=== PATIENT | female | born 1940 | race Caucasian/White ===

== ENCOUNTER 2016-11-23 11:43 | Inpatient (IN) ==
[2016-11-23] MEDS ORDERED: NS 1,000 ML IV ONE ×2 (12:40→15:46)
--- NOTE | 2016-11-23 12:42 | PROVIDER DOCUMENTATION ---
HPI-General Adult - General Chief Complaint: Altered Mental Status Stated Complaint: AMS Time Seen by Provider: 11/23/16 12:07 Source: patient Allergies/Adverse Reactions: Patient Allergies Allergy/AdvReac Type Severity Reaction Status Date / Time No Known Allergies Allergy Verified 11/23/16 11:58 - History of Present Illness -Gen Adult Nature of Presenting Problems: Pt is 76 y/o F presents to the ED via EMS with AMS. Pt's friend states that she did not show up for buddhist this morning. Pt states she feel fine. Pt states she did not feel well so she did not go to buddhist. Pt denies F and C. Pt denies LOC. Location of Pain/Injury: reports: generalized Pain Radiation: reports: no radiation Quality of Pain: reports: aching Severity: reports: mild Onset/Duration: reports: unsure Timing: reports: still present, intermittent Context/Activities at Onset: reports: light activity Modifying Factors: improves with: nothing Associated Symptoms: reports: weakness. denies: arm pain, back/neck pain, chest pain, diarrhea, fever/chills, loss of appetite, nausea, shortness of breath, trouble walking Similar Symptoms Previously?: Yes Recently seen or treated by another doctor?: No Review of Systems - Adult - REVIEW OF SYSTEMS - ADULT Constitutional: denies: chills, fever Eyes: denies: blurred vision, double vision Ears, Nose, Mouth & Throat: denies: ear pain, nose pain, throat pain Cardiovascular: denies: chest pain, heart murmur, irregular heart rate Respiratory: denies: cough, shortness of breath, wheezing Gastrointestinal: denies: abdominal pain, diarrhea, nausea, vomiting Genitourinary: denies: dysuria, hematuria Musculoskeletal: reports: muscle weakness. denies: bone pain, joint pain, neck pain Integumentary: denies: hives, itching Neurological: denies: dizziness/vertigo, headache/migraines Psychiatric: reports: no symptoms reported Endocrine: reports: no symptoms reported Hematologic/Lymphatic: reports: no symptoms reported Allergic/Immunologic: reports: no symptoms reported All Other Systems: Reviewed and Negative Past History - Adult - PAST MEDICAL HISTORY-ADULT Review of Records: reports: Nursing Assessment Review, Medications Reviewed, Social history reviewed & non-contributory. Major Childhood Illnesses: reports: denies history Cardiovascular: reports: HTN Respiratory: reports: denies history Gastrointestinal: reports: denies history Obstetrical/Gynecological: reports: denies history Genitourinary: reports: denies history Musculoskeletal: reports: denies history Neurological: reports: denies history Endocrine/Immune: reports: Diabetes Other Conditions: reports: denies history - PRIOR SURGERIES/PROCEDURES Surgical/Procedure History: reports: tonsillectomy - IMMUNIZATION STATUS Childhood Immunizations: See Nurse Assessment Flu Vaccine: See Nurse Assessment - FAMILY HISTORY Family History: reviewed, not pertinent - SOCIAL HISTORY Smoking: denies Substance Use: denies Living Situation: alone Physical Exam-General - PHYSICAL EXAM-ADULT Initial Vital Signs Reviewed: Yes - CONSTITUTIONAL General Appearance: alert, no apparent distress, slow to respond. negative: appears well (ill in appearance) - EYES Eyes: PERRL/EOMI, pink conjunctivae - HEAD, EARS, NOSE, MOUTH & THROAT HENMT: normocephalic/atraumatic, normal ENT inspection. negative: moist mucous membranes (dry) - NECK Neck: non-tender, full range of motion, supple, normal inspection - RESPIRATORY Respiratory: chest non-tender, lungs clear, normal breath sounds - CARDIOVASCULAR Cardiovascular: normal peripheral pulses, regular rate, rhythm, no edema - GASTROINTESTINAL (ABDOMEN) Abdominal Exam: normal bowel sounds, non tender, soft - LYMPHATIC Lymphatic: no adenopathy - MUSCULOSKELETAL Back Exam: normal inspection, no CVA tenderness, no vertebral tenderness Extremity: normal range of motion, non-tender, normal gait - SKIN Integumentary: normal color, normal turgor, warm/dry - NEUROLOGIC Neurologic: specialized language instructor II-XII nml as tested, grossly normal, no motor/sensory deficits - PSYCHIATRIC Psych/Mental Status: normal mood/affect, normal thought content, normal thought process, oriented x 3 Progress - PLAN OF CARE/RESULTS Progress/Plan/Lab Results: Orders Category Date Time Status Cardiac Monitoring DIRECTED Care 11/23/16 12:38 Active Finger Stick Blood Sugar (ED) DIRECTED Care 11/23/16 12:38 Active Saline Loc NOW Care 11/23/16 12:38 Active CHEST-PORTABLE [RAD] Stat Exams 11/23/16 12:39 Ordered ALCOHOL BLOOD Stat Lab 11/23/16 12:16 Received CBC WITH ELECTRONIC DIFF [HEME] Stat Lab 11/23/16 12:16 Results CK PROFILE [SP CHEM] Stat Lab 11/23/16 12:16 Received COMPREHENSIVE METABOLIC PANEL [CHEM] Stat Lab 11/23/16 12:16 Received LACTATE, PLASMA [CHEM] Stat Lab 11/23/16 12:38 Uncollected TROPONIN T Stat Lab 11/23/16 12:16 Received UA NIMS W/REFLEX CULT [URINALYSIS] Stat Lab 11/23/16 12:38 Uncollected URINE DRUG SCREEN Stat Lab 11/23/16 12:38 Uncollected 0.9% Sodium Chloride Inj [Ns] 1,000 ml Med 11/23/16 12:40 Active IV 999 mls/hr Pulse Oximetry Stat Oth 11/23/16 12:38 Active EKG [EKG] Stat Ther 11/23/16 12:38 Ordered Vital Signs - 24 hr 11/23/16 11:58 Temperature 99.0 F Pulse Rate 96 H Respiratory 20 Rate Blood Pressure 136/58 O2 Sat by Pulse 95 Oximetry Laboratory Tests 11/23/16 12:16 WBC 3.09 L RBC 4.25 Hgb 11.4 L Hct 35.6 L MCV 83.8 MCH 26.8 L MCHC 32.0 L RDW Std Deviation 14.4 Plt Count 184 MPV 10.9 H Immature Gran % (Auto) 0.0 Neut % (Auto) 70.3 Lymph % (Auto) 15.5 L [place] % (Auto) 14.2 H Eos % (Auto) 0.0 Baso % (Auto) 0.0 Immature Gran # (Auto) 0.00 Neut # 2.17 Lymph # 0.48 L [place] # 0.44 Eos # 0.00 Baso # 0.00 Laboratory Tests 11/23/16 11/23/16 11/23/16 12:16 12:16 12:16 WBC 3.09 L RBC 4.25 Hgb 11.4 L Hct 35.6 L MCV 83.8 MCH 26.8 L MCHC 32.0 L RDW Std Deviation 14.4 Plt Count 184 MPV 10.9 H Immature Gran % (Auto) 0.0 Neut % (Auto) 70.3 Lymph % (Auto) 15.5 L [place] % (Auto) 14.2 H Eos % (Auto) 0.0 Baso % (Auto) 0.0 Immature Gran # (Auto) 0.00 Neut # 2.17 Lymph # 0.48 L [place] # 0.44 Eos # 0.00 Baso # 0.00 Sodium 134 L Potassium 3.9 Chloride 95 L Carbon Dioxide 24 L Anion Gap 15 BUN 14 Creatinine 0.7 Estimated GFR/1.73 m2 > 60 BUN/Creatinine Ratio 20 Glucose 98 Calculated Osmolality 269 Calcium 8.8 Total Bilirubin 0.36 AST 19 ALT 9 L Alkaline Phosphatase 63 Creatine Kinase 114 Troponin T Total Protein 7.2 Albumin 3.5 Globulin 3.7 Albumin/Globulin Ratio 0.9 Plasma Lactate Plasma/Serum Ethyl Alc 11/23/16 11/23/16 12:16 12:49 WBC RBC Hgb Hct MCV MCH MCHC RDW Std Deviation Plt Count MPV Immature Gran % (Auto) Neut % (Auto) Lymph % (Auto) [place] % (Auto) Eos % (Auto) Baso % (Auto) Immature Gran # (Auto) Neut # Lymph # [place] # Eos # Baso # Sodium Potassium Chloride Carbon Dioxide Anion Gap BUN Creatinine Estimated GFR/1.73 m2 BUN/Creatinine Ratio Glucose Calculated Osmolality Calcium Total Bilirubin AST ALT Alkaline Phosphatase Creatine Kinase Troponin T < 0.010 Total Protein Albumin Globulin Albumin/Globulin Ratio Plasma Lactate 1.4 Plasma/Serum Ethyl Alc Laboratory Tests 11/23/16 11/23/16 11/23/16 12:16 12:16 12:16 WBC 3.09 L RBC 4.25 Hgb 11.4 L Hct 35.6 L MCV 83.8 MCH 26.8 L MCHC 32.0 L RDW Std Deviation 14.4 Plt Count 184 MPV 10.9 H Immature Gran % (Auto) 0.0 Neut % (Auto) 70.3 Lymph % (Auto) 15.5 L [place] % (Auto) 14.2 H Eos % (Auto) 0.0 Baso % (Auto) 0.0 Immature Gran # (Auto) 0.00 Neut # 2.17 Lymph # 0.48 L [place] # 0.44 Eos # 0.00 Baso # 0.00 Sodium 134 L Potassium 3.9 Chloride 95 L Carbon Dioxide 24 L Anion Gap 15 BUN 14 Creatinine 0.7 Estimated GFR/1.73 m2 > 60 BUN/Creatinine Ratio 20 Glucose 98 Calculated Osmolality 269 Calcium 8.8 Total Bilirubin 0.36 AST 19 ALT 9 L Alkaline Phosphatase 63 Creatine Kinase 114 Troponin T Total Protein 7.2 Albumin 3.5 Globulin 3.7 Albumin/Globulin Ratio 0.9 Plasma Lactate Urine Source Urine Color Urine Turbidity Urine pH Ur Specific Grants Urine Protein Ur Glucose (Stick) Ur Ketones (Stick) Urine Blood Urine Nitrite Urine Bilirubin Urobilinogen Dipstick Urine Leukocytes Urine WBC (Auto) Urine RBC (Auto) U Epithel Cells (Auto) Urine Bacteria (Auto) Plasma/Serum Ethyl Alc 11/23/16 11/23/16 11/23/16 12:16 12:49 14:39 WBC RBC Hgb Hct MCV MCH MCHC RDW Std Deviation Plt Count MPV Immature Gran % (Auto) Neut % (Auto) Lymph % (Auto) [place] % (Auto) Eos % (Auto) Baso % (Auto) Immature Gran # (Auto) Neut # Lymph # [place] # Eos # Baso # Sodium Potassium Chloride Carbon Dioxide Anion Gap BUN Creatinine Estimated GFR/1.73 m2 BUN/Creatinine Ratio Glucose Calculated Osmolality Calcium Total Bilirubin AST ALT Alkaline Phosphatase Creatine Kinase Troponin T < 0.010 Total Protein Albumin Globulin Albumin/Globulin Ratio Plasma Lactate 1.4 Urine Source CATH Urine Color YELLOW Urine Turbidity CLEAR Urine pH 5.5 Ur Specific [place] 1.026 Urine Protein 30 A Ur Glucose (Stick) NEGATIVE Ur Ketones (Stick) 20 A Urine Blood MODERATE A Urine Nitrite NEGATIVE Urine Bilirubin NEGATIVE Urobilinogen Dipstick 2 A Urine Leukocytes TRACE A Urine WBC (Auto) 10-20 A Urine RBC (Auto) 10-20 A U Epithel Cells (Auto) >10 A Urine Bacteria (Auto) 2+ Plasma/Serum Ethyl Alc - EKG 1 Time of EKG reading by physician:: 12:04 EKG Read and Signed by:: Viktor Marx EKG Interpretation (*Must complete 3 of following elements*): Abnormal Rate: 91 Rhythm: sinus rhythm with marked sinus arrhythmia Comments: L axis deviation - XRAY 1 XRAY: Bilateral XRAY Study: Chest Impression: Normal XRAY Interpretation: negative - CT/MRI 1 CT Study: Head Impression: Normal CT Results: no acute disease - CONSULTS/PCP/HOSPITALIST Notification #1 *Consult/PCP/Hospitalist*: Dr. Vegas Time Discussed: 13:12 (Dr. Vegas accepted admit ) Reason/Comments: Dr. Marx consulted with Dr. Vegas about admit of PT Consult Disposition: Admit Departure - Departure Time of Disposition Order: 15:12 DIAGNOSIS: Altered mental status Qualifiers: Altered mental status type: unspecified Qualified Code(s): R41.82 - Altered mental status, unspecified Disposition: ADMITTED INPATIENT 09 Certified Medical Emergency: Emergent Condition: Stable Attestation - Scribe Verification/Attestation Scribe:: Patsy Albright Acting as Scribe for:: Viktor Marx Scribe documention review:: This chart was documented by a scribe and accurately reflects the service the provider performed and the decisions made by the provider.
[2016-11-23 12:45] LABS: MANUAL DIFF NEEDED? NO
[2016-11-23 12:52] LABS: HEMATOCRIT 35.6 % (37.0-47.0); HEMOGLOBIN 11.4 g/dL (12.0-16.0); LYMPH# 0.48 X1000 (1.2-3.4); LYMPH% 15.5 % (20.5-51.1); MCH 26.8 PG (27-31); MCV 83.8 FL (81-99); MONO# 0.44 X1000 (0.11-0.59); MONO% 14.2 % (1.7-9.3); MPV 10.9 FL (7.4-10.4); NEUT% 70.3 % (42.2-75.2); PLT 184 X1000 (130-400); RBC 4.25 XMIL (4.2-5.4)
[2016-11-23 13:15] LABS: AGAP 15; ALBUMIN 3.5 g/dL (3.5-5.0); ALKALINE PHOSPHATASE 63 U/L (32-104); BUN 14 mg/dL (8-22); CALCIUM 8.8 mg/dL (8.8-10.2); CHLORIDE 95 mmol/L (98-107); CK PROFILE 114 U/L (24-173); COSMO 269; GOT 19 U/L (10-30); GPT 9 U/L (10-36); POTASSIUM 3.9 mmol/L (3.5-5.1); SODIUM 134 mmol/L (136-145); TCO2 24 mmol/L (25-35); TOTAL BILIRUBIN 0.36 mg/dL (0.20-1.00); TOTAL PROTEIN 7.2 g/dL (6.3-8.3)
--- NOTE | 2016-11-23 14:48 | Diag Imaging Result Document ---
PROCEDURE NAME: CHEST-PORTABLE - 11/23/2016 PORTABLE CHEST: COMPARISON: None. FINDINGS: The lungs are normally expanded and clear. Heart size and mediastinal contours are normal. No pneumothorax or pleural effusion. IMPRESSION: Negative exam.
[2016-11-23 14:52] LABS: URINE MICRO REVIEW NEEDED? NO; URINE SOURCE CATH
[2016-11-23 14:57] LABS: BILIRUBIN URINE NEGATIVE (NEGATIVE); BLOOD URINE MODERATE (NEGATIVE); COLOR YELLOW; GLUCOSE URINE NEGATIVE (NEGATIVE); LEUKOCYTES URINE TRACE (NEGATIVE); NITRITE URINE NEGATIVE (NEGATIVE); PH URINE 5.5; PROTEIN URINE 30 mg/dL (NEGATIVE); SP GRAVITY URINE 1.026; TURBIDITY URINE CLEAR (CLEAR); UR EPITHELIAL CELLS >10 /HPF (<10); URINE BACTERIA 2+ /HPF; URINE CULTURE NEEDED? YES; UROBILINOGEN URINE 2 mg/dL (NORMAL)
[2016-11-23] MEDS ORDERED: ROCEPHIN 1 GM/NS 50 ML IV ONE (15:02)
[2016-11-23 15:22] LABS: UR AMPHETAMINES QUAL NONE DETECTED (NONE DETECT); UR BARBITUATES QUAL NONE DETECTED (NONE DETECT); UR BENZODIAZEPIN QUAL NONE DETECTED (NONE DETECT); UR CANNABINOIDS QUAL NONE DETECTED (NONE DETECT); UR COCAINE QUAL NONE DETECTED (NONE DETECT); UR METHADONE QUAL NONE DETECTED (NONE DETECT); UR OPIATES QUAL NONE DETECTED (NONE DETECT); UR OXYCODONE QUAL NONE DETECTED (NONE DETECT); UR PCP QUAL NONE DETECTED (NONE DETECT)
[2016-11-23] MEDS ORDERED: LEVAQUIN 750 MG/D5W 150 ML IV SCH (16:00)
--- NOTE | 2016-11-23 16:16 | Diag Imaging Result Document ---
PROCEDURE NAME: HEAD W/O CONTRAST - 11/23/[address]: A CT dose reduction protocol was used. COMPARISON: None. FINDINGS: There is mild periventricular white matter chronic microvascular disease. No intracranial mass or hemorrhage. The skull is intact. The sinuses are clear. IMPRESSION: No acute disease. [facility]
[2016-11-23] MEDS ORDERED: TYLENOL PO PRN (16:40)
[2016-11-23] MEDS ORDERED: ZOFRAN IV PRN (16:40)
[2016-11-23] MEDS: LEVAQUIN 750 MG in NS 150 ML IV SCH (16:57)
--- NOTE | 2016-11-23 23:18 | HISTORY AND PHYSICAL ---
PRIMARY CARE PROVIDER: Mik Carey MD CHIEF COMPLAINT: Feeling bad mid morning. HISTORY OF PRESENT ILLNESS: Ms. Hayden is a 76-year-old healthy female in no acute distress. Apparently she has [facility] the [facility] and their [facility] program included her with using bells. Given that she has been there for 40+ years, it was noticed that she did not show up for [facility] this morning. Someone went to go check on her and found her to be slightly confused, smelling of urine and she was brought here to [facility] ER. Workup revealed that she has urinary tract infection with urinalysis 30 protein, 20 ketones, moderate blood and trace leukocytes, 10 to 20 white blood cells, and 2 + bacteria. A urine drug screen and alcohol test were negative. The patient states that she did not have any falls this morning, she is unsure why she did not call anyone to let them know. Currently, she is living alone. We will admit her for IV fluid hydration for dehydration, IV antibiotics for urinary tract infection and perform a head CT to evaluate history of stroke. Ms. Hayden is a poor historian, although she is oriented. She repeats her stories with some confused conversation. PAST MEDICAL HISTORY: Hypertension, diabetes type 2. SURGICAL HISTORY: Tonsillectomy. SOCIAL HISTORY: Denies alcohol, illicit drug use or tobacco. Lives at home alone and is able to ambulate without assistance. She is somewhat cachectic, but states that she has no issues with feeding. Her cousin who is at the bedside states that she eats like a bird. FAMILY HISTORY: Mother is . They had congestive heart failure, diabetes and stroke in the family. REVIEW OF SYSTEMS: Difficult to obtain, but all were negative except for those mentioned in the above HPI. ALLERGIES: No known drug allergies. HOME MEDICATIONS: Currently none are listed. LABORATORY DATA: White blood cells 3000, hemoglobin 11.4, hematocrit 35.6, platelet count 184,000. Sodium 134, BUN 14, creatinine 0.7, glucose 98. Total bilirubin 0.36 , AST 19, ALT 9, CK 114, troponins less than 0.01. Lactate 1.4. Albumin 3.5. Urinalysis 30 protein, 20 ketones, moderate blood, negative nitrite, trace leukocytes, 10-20 white blood cells. Greater than 10 epithelial cells, 2+ bacteria, urine drug screen negative. Alcohol level negative. IMAGING: Head CT pending. Chest x-ray, negative exam. EKG, normal sinus rhythm, sinus arrhythmia, with a left axis deviation, rate of 91. PHYSICAL EXAMINATION: VITAL SIGNS: Temperature is 99 degrees, heart rate 96, respiratory rate 20, blood pressure 136/58, O2 saturation 95% on room air. She is 5 feet 10 inches tall, 185 pounds as stated by the patient, although she looks much less weight than that, a BMI of 26.5 and she does not look 5 feet 10 inches tall. GENERAL: Ms. Melanie Hayden is a 76-year-old female who is somewhat cachectic, she is in no acute distress. She has the smell of the urine. She is able to answer questions, but has been repeating answers. HEENT: Atraumatic, normocephalic. Pupils equal, round, reactive to light. Extraocular movements intact. CARDIOVASCULAR: S1, S2. Regular rate and rhythm. No rubs, gallops, murmurs. NECK: No JVD or carotid bruits noted. Mucous membranes dry. PULMONARY: Clear to auscultation. Bilateral breath sounds. No accessory muscle use or work of breathing noted on room air. GI: Soft, concave, nontender. Positive bowel sounds x4. NEUROLOGIC: Alert and oriented times name, place and year, but still continues to have confused conversation. She is able to follow all commands and she is about 4.5 out of 5 in all extremities with strength. EXTREMITIES: +2 dorsalis and radial pulses. No edema noted. SKIN: Warm, dry, intact. ASSESSMENT AND PLAN: 1. Urinary tract infection. We will treat with Levaquin IV. We will do IV fluid hydration and follow up with urine culture. 2. Questionable underlying dementia versus encephalopathy secondary to urinary tract infection. We will follow up with head computed tomography. Currently she is pleasant, she has no weakness on 1 side versus the other. We will continue to trend. It is unknown if she is on medications at home for this. 3. Anemia, hemoglobin 11, hematocrit 35. We will do anemia labs and start supplementation as needed. 4. Leukopenia, white blood cells 3000. 5. Hyponatremia. Should improve with IV fluid hydration with normal saline. 6. Deep venous thrombosis prophylaxis. We will do Lovenox subcutaneous daily. 7. Gastrointestinal prophylaxis. We will do a proton pump inhibitor. Dictated by BRADLY Childress for Margarito Umanzor MD [facility]
[2016-11-23] MEDS: HUMULIN R SUBQ SCH (23:45)
[2016-11-24] MEDS: LOVENOX SUBQ SCH (05:29)
[2016-11-24 05:55] LABS: MANUAL DIFF NEEDED? NO
[2016-11-24] MEDS: PRILOSEC PO SCH (06:02)
[2016-11-24 06:04] LABS: HEMATOCRIT 32.8 % (37.0-47.0); HEMOGLOBIN 10.3 g/dL (12.0-16.0); LYMPH% 31.3 % (20.5-51.1); MCH 26.6 PG (27-31); MCHC 31.4 g/dL (33-37); MCV 84.8 FL (81-99); MONO# 0.29 X1000 (0.11-0.59); MONO% 12.9 % (1.7-9.3); MPV 10.6 FL (7.4-10.4); NEUT% 55.8 % (42.2-75.2); PLT 160 X1000 (130-400); RBC 3.87 XMIL (4.2-5.4)
[2016-11-24 06:10] LABS: AGAP 14; ALBUMIN 2.8 g/dL (3.5-5.0); ALKALINE PHOSPHATASE 51 U/L (32-104); BUN 14 mg/dL (8-22); CHLORIDE 101 mmol/L (98-107); COSMO 273; GOT 19 U/L (10-30); GPT 8 U/L (10-36); MAGNESIUM 1.9 mg/dL (1.5-2.7); POTASSIUM 4.3 mmol/L (3.5-5.1); PREALBUMIN 8.9 mg/dL (20-40); SODIUM 137 mmol/L (136-145); TCO2 22 mmol/L (25-35); TOTAL BILIRUBIN 0.21 mg/dL (0.20-1.00)
[2016-11-24 06:15] LABS: HEMOGLOBIN A1C 5.3 % (4.8-6.0)
--- NOTE | 2016-11-24 08:11 | EKG Report ---
Test Performed on : 11/24/2016 07:37:40 AM Test Reason : chest pain Blood Pressure : / mmHG Vent. Rate : 083 BPM Atrial Rate : 083 BPM P-R Int : 116 ms QRS Dur : 074 ms QT Int : 372 ms P-R-T Axes : 054 -48 061 degrees QTc Int : 437 ms Normal sinus rhythm. Left axis deviation Abnormal ECG When compared with ECG of 23-NOV-2016 12:04, (Unconfirmed) No significant change was found Confirmed by Santo Koch MD ([id number]) on 11/25/2016 8:49:17 AM
--- NOTE | 2016-11-24 08:41 | EKG Report ---
Test Performed on : 11/23/2016 12:04:20 PM Test Reason : ams Blood Pressure : / mmHG Vent. Rate : 091 BPM Atrial Rate : 091 BPM P-R Int : 112 ms QRS Dur : 074 ms QT Int : 348 ms P-R-T Axes : 065 -48 069 degrees QTc Int : 428 ms Sinus rhythm. with marked sinus arrhythmia. Left axis deviation Abnormal ECG When compared with ECG of 19-JAN-2010 09:32, QRS axis shifted left Unconfirmed Result
[2016-11-24] MEDS: HUMULIN R SUBQ SCH ×4 (08:50→20:47)
[2016-11-24] MEDS: LEVAQUIN 750 MG in NS 150 ML IV SCH (16:34)
--- NOTE | 2016-11-24 19:48 | PROGRESS NOTE ---
DATE: 11/24/2016 SUBJECTIVE: This patient states that she is feeling much better. She is not complaining of dizziness, nausea, vomiting, diarrhea, or constipation. No chest pain. No abdominal pain. OBJECTIVE: Vital Signs: Temperature 97.4 degrees, pulse 88, respiratory rate 18, blood pressure 148/68, O2 saturation 97% on room air. HEENT: Head normocephalic. No trauma. PERRLA. Neck: Supple. No JVD. No masses. Chest: Clear to auscultation. No wheezing. No rales. Abdomen: Soft, nontender, nondistended. No hepatosplenomegaly. Positive bowel sounds. Cardiovascular: RRR. No murmurs. No gallops. No rubs. Extremities: No edema. No cyanosis. Neurological: The patient is alert and oriented x3. No focal neurological deficits. LABORATORY: WBC 2.2, hemoglobin 10.3, hematocrit 32.8, platelet 160,000. Sodium 137, potassium 4.3, chloride 101, bicarbonate 22, BUN 14, creatinine 0.8, glucose 78. Hemoglobin A1c 5.3, calcium 8, albumin 2.8. ASSESSMENT AND PLAN: 1. Urinary tract infection. We will continue with levofloxacin IV, we will continue with the IV fluids. We have a positive urine culture result that showed gram-negative rods. 2. Questionable underlying dementia versus encephalopathy secondary to urinary tract infection. Today this patient is doing much better. She is alert and oriented x3. No focal neurological deficits. 3. Anemia. Will monitor. Stable. 4. Leukopenia. Her white blood cells are low. Will monitor. 5. Hyponatremia resolved. Overall, this patient is doing much better. Hopefully tomorrow we have a result for the culture and we are going to be able to send this patient home with p.o. antibiotics.
[2016-11-25] MEDS: PRILOSEC PO SCH ×2 (05:49→11:36)
[2016-11-25] MEDS: LOVENOX SUBQ SCH (05:50)
[2016-11-25 05:57] LABS: MANUAL DIFF NEEDED? NO
[2016-11-25 06:03] LABS: BASO% 0.4 % (0.0-0.8); HEMOGLOBIN 11.7 g/dL (12.0-16.0); LYMPH# 0.96 X1000 (1.2-3.4); LYMPH% 42.7 % (20.5-51.1); MCH 26.4 PG (27-31); MCHC 31.6 g/dL (33-37); MCV 83.3 FL (81-99); MONO# 0.26 X1000 (0.11-0.59); MONO% 11.6 % (1.7-9.3); MPV 10.4 FL (7.4-10.4); NEUT% 45.3 % (42.2-75.2); PLT 191 X1000 (130-400); RBC 4.44 XMIL (4.2-5.4)
[2016-11-25 06:20] LABS: AGAP 13; BUN 8 mg/dL (8-22); CALCIUM 8.6 mg/dL (8.8-10.2); CHLORIDE 100 mmol/L (98-107); COSMO 273; POTASSIUM 4.3 mmol/L (3.5-5.1); SODIUM 138 mmol/L (136-145); TCO2 25 mmol/L (25-35)
[2016-11-25] MEDS: HUMULIN R SUBQ SCH ×4 (06:32→20:37)
--- NOTE | 2016-11-25 08:25 | HISTORY AND PHYSICAL ---
ADDENDUM TO THE IMPRESSION AND PLAN: 1. Hypertension, currently stable. Unknown if she is on home medications for this. We will hold for now. 2. Diabetes type 2. We will check a hemoglobin A1c in the morning and do pattern blood glucoses with insulin as needed. Dictated by BRADLY Childress for Margarito Umanzor MD
[2016-11-25] MEDS: LEVAQUIN 750 MG in NS 150 ML IV SCH (17:19)
--- NOTE | 2016-11-25 20:08 | PROGRESS NOTE ---
DATE: 11/25/2016 SUBJECTIVE: This patient states that she is feeling much better. She is not complaining of any dizziness, nausea, vomiting, diarrhea, constipation. No chest pain. No shortness of breath. OBJECTIVE: Vital Signs: Temperature 97.9 degrees, pulse 80, respiratory rate 16, blood pressure 142/69, O2 saturation 99 on room air. HEENT: Head normocephalic. No trauma. PERRLA. Neck: Supple. No JVD. No masses. Chest: Clear to auscultation. No wheezing. No rales. Abdomen: Soft, nontender, nondistended. No hepatosplenomegaly. Positive bowel sounds. Cardiovascular: RRR. No murmurs. No gallops. No rubs. Extremities: No edema, cyanosis. Neurological: The patient is alert and oriented x3. No focal neurological deficits. LABORATORY: WBC 2.2, hemoglobin 11.7, hematocrit 37, platelet 191,000. Sodium 138, potassium 4.3, chloride 100, bicarbonate 25, BUN 8, creatinine 0.7, glucose 88, calcium 8.6. ASSESSMENT AND PLAN: 1. Urinary tract infection. We will continue with levofloxacin IV and will continue with the IV fluids. We have a positive culture that showed Escherichia coli infection. 2. Questionable underlying dementia versus encephalopathy secondary to urinary tract infection. Today this patient is doing much better. She is alert and she is oriented x3. No focal neurological deficits. 3. Anemia. Will monitor. 4. Leukopenia. Her white blood cells are about the same. We will monitor. 5. Hyponatremia resolved. Overall this patient is doing much better. I am planning to discharge this patient tomorrow, pending placement.
[2016-11-26] MEDS: LOVENOX SUBQ SCH (06:09)
[2016-11-26] MEDS: PRILOSEC PO SCH (06:09)
[2016-11-26] MEDS: HUMULIN R SUBQ SCH ×4 (06:24→21:00)
[2016-11-26 07:09] LABS: AGAP 11; BUN 8 mg/dL (8-22); CALCIUM 8.5 mg/dL (8.8-10.2); CHLORIDE 100 mmol/L (98-107); COSMO 275; POTASSIUM 4.1 mmol/L (3.5-5.1); SODIUM 139 mmol/L (136-145); TCO2 28 mmol/L (25-35)
[2016-11-26 08:13] LABS: BASO% 0.6 % (0.0-0.8); EOS# 0.02 X1000 (0.0-0.7); EOS% 1.3 % (0.0-10.0); HEMATOCRIT 35.4 % (37.0-47.0); HEMOGLOBIN 11.2 g/dL (12.0-16.0); LYMPH# 0.88 X1000 (1.2-3.4); LYMPH% 56.1 % (20.5-51.1); MANUAL DIFF NEEDED? YES; MCH 26.4 PG (27-31); MCHC 31.6 g/dL (33-37); MCV 83.3 FL (81-99); MONO# 0.17 X1000 (0.11-0.59); MONO% 10.8 % (1.7-9.3); MPV 10.7 FL (7.4-10.4); NEUT% 31.2 % (42.2-75.2); PLT 177 X1000 (130-400); RBC 4.25 XMIL (4.2-5.4)
[2016-11-26 09:15] LABS: BANDS 2 % (0-1); EOS 2 % (1-10); LYMPHS 50 % (21-51); MONO 2 % (1-9)
[2016-11-26] MEDS: COZAAR PO SCH (13:04)
[2016-11-26] MEDS: LOPRESSOR PO SCH (13:05)
[2016-11-26] MEDS: GRANIX SUBQ SCH (13:09)
--- NOTE | 2016-11-26 13:43 | CONSULTATION ---
DATE OF CONSULTATION: 11/26/2016 REQUESTING PHYSICIAN: Dr. Umanzor. REASON FOR CONSULTATION: Leucopenia. HISTORY OF PRESENT ILLNESS: Ms. Limon is a pleasant, 76-year-old female who was found at home confused and smelling of urine and was brought to the emergency department. Workup revealed the patient to have a urinary tract infection. She has now been admitted to the hospital for. INCOMPLETE REPORT--DICTATION ENDS HERE. Dictated by GENE Negrete for Tabatha Montoya MD
--- NOTE | 2016-11-26 13:49 | CONSULTATION ---
DATE OF CONSULTATION: 11/26/2016 REQUESTING PHYSICIAN: Dr. Umanzor. REASON FOR CONSULTATION: Leukopenia. HISTORY OF PRESENT ILLNESS: Ms. Limon is a pleasant 76-year-old female who was found confused and smelling of urine while at home on day after she did not show for [facility] service at her [facility]. The patient was brought to the emergency department for further evaluation. Workup revealed her to have a urinary tract infection. She was started on IV antibiotics. Her AMS this is since resolved. The patient's white blood cell count on admission was 3.09, has fallen to 1.57. We have been consulted to provide further assistance and workup regarding her white count. Patient's ANC is down to 0.49 today. She has no acute complaints at this time. PAST MEDICAL HISTORY: Hypertension. PAST SURGICAL HISTORY: Tonsillectomy. SOCIAL HISTORY: Lives alone. Denies any alcohol or drug use. REVIEW OF SYSTEMS: As per HPI. All else is negative or noncontributory. PHYSICAL EXAMINATION: Vital Signs: Temperature 98.2 degrees, heart rate 81, respirations 16, blood pressure 133/65, O2 saturation 97% on room air. Head: Normocephalic, atraumatic. Eyes: Pupils equal, round, reactive. Ears, nose, throat, neck, and mouth: Oral mucosa is normal. Gross auditory acuity is intact. Trachea is midline. Cardiovascular: S1, S2 heard without murmurs, gallops, or rubs appreciated. Respiratory: Clear to auscultation bilaterally. Normal respiratory effort. Abdomen: Soft, nondistended. Positive bowel sounds. Musculoskeletal: No bony abnormalities noted. Extremities: No edema noted. Neurologic: Patient is alert and oriented x3. No focal motor deficits noted. LABS AND STUDIES: White blood cells today are 1.57. On admission white blood cells were 3.09, down to 2.24, and then 2.25 previously. The patient ANC 0.49. Hemoglobin 11.2, hematocrit 35.4, platelets a 177,000. Sodium 139, potassium 4.1, chloride 100, CO2 28, BUN 8, creatinine 0.7, glucose 90. LFTs within normal limits. Urine culture consistent with Klebsiella. ASSESSMENT AND PLAN: 1. Leukopenia. This is likely secondary to her underlying infection. However, we will go ahead and check a folate, vitamin B12, was well as HAMLET, ANCA, and sedimentation rate at this time. The patient will also be started on Neupogen at 480 mcg daily to improve her white count. Neutropenic precautions. 2. Urinary tract infection. Continue IV antibiotics. Patient is showing clinical improvement. 3. Altered mental status. Resolved. Secondary to #2. Continue treating underlying infection. We want to thank you for this consult and allowing us to participate in Ms. Hayden's care while she is at [facility]. Will continue to follow along and adjust our treatment plan per hospital course. Dictated by GENE Negrete for Tabatha Montoya MD
--- NOTE | 2016-11-26 15:02 | PROGRESS NOTE ---
DATE: 11/26/2016 SUBJECTIVE: The patient states that she is feeling fine. Today, we had a positive result for neutropenia, for leukopenia. I have consulted the Hematology Department to evaluate this patient. She is not complaining of nausea, vomiting, diarrhea, constipation. No shortness of breath. No chest pain. OBJECTIVE: Vital Signs: Temperature 98.2 degrees, pulse 81, respiratory rate 16, blood pressure 133/65, oxygen saturation 97% on room air. Respiratory rate 16. HEENT: Head normocephalic. No trauma. PERRLA. Neck supple. No JVD. No masses. Chest clear to auscultation. No wheezing. No rales. Abdomen is soft, nontender, nondistended. No hepatosplenomegaly. Positive bowel sounds. Cardiovascular: RRR. No murmurs. No gallops. No rubs. Extremities: No edema. No cyanosis. Neurologic: The patient is alert and oriented x3. No focal neurological deficits. LABORATORY: WBC 1.5, hemoglobin 11.2, hematocrit 35.4, platelets 177,000. Neutrophils 0.49. Sodium 139, potassium 4.1, chloride 100, bicarbonate 28. BUN 8, creatinine 0.7, glucose 90. Calcium is 8.5. ASSESSMENT AND PLAN: 1. Urinary tract infection. We will continue with levofloxacin IV. I will continue with IV fluids. We have a positive culture that showed Escherichia coli infection. 2. Leukopenia with neutropenia. Hematology Department is on board. They evaluated the patient, and they think that this is related to the underlying infection, however, they are going to ask for some lab work like folate, vitamin B12, HAMLET, ANCA and sedimentation rate. They started this patient on Neupogen. 3. Questionable underlying dementia. Today, this patient is doing better. I am not quite sure if she has baseline dementia. She is alert and oriented x3. No focal neurological deficits. 4. Anemia, will monitor. 5. Hyponatremia, resolved.
[2016-11-26] MEDS: LEVAQUIN 750 MG in NS 150 ML IV SCH (16:41)
[2016-11-27 06:33] LABS: MANUAL DIFF NEEDED? NO
[2016-11-27 06:42] LABS: BASO% 0.2 % (0.0-0.8); EOS# 0.01 X1000 (0.0-0.7); EOS% 0.1 % (0.0-10.0); HEMATOCRIT 35.2 % (37.0-47.0); HEMOGLOBIN 11.2 g/dL (12.0-16.0); IMM GRAN# 0.07 X1000 (0.0-0.04); IMM GRAN% 0.7 % (0.0-0.5); LYMPH# 1.18 X1000 (1.2-3.4); LYMPH% 11.4 % (20.5-51.1); MCH 26.5 PG (27-31); MCHC 31.8 g/dL (33-37); MCV 83.4 FL (81-99); MONO# 0.42 X1000 (0.11-0.59); MONO% 4.1 % (1.7-9.3); MPV 11.2 FL (7.4-10.4); NEUT% 83.5 % (42.2-75.2); PLT 152 X1000 (130-400); RBC 4.22 XMIL (4.2-5.4)
[2016-11-27] MEDS: PRILOSEC PO SCH (06:50)
[2016-11-27] MEDS: LOVENOX SUBQ SCH (06:50)
[2016-11-27] MEDS: HUMULIN R SUBQ SCH ×4 (06:52→20:55)
[2016-11-27 07:01] LABS: AGAP 12; BUN 11 mg/dL (8-22); CALCIUM 8.3 mg/dL (8.8-10.2); CHLORIDE 98 mmol/L (98-107); COSMO 269; POTASSIUM 4.2 mmol/L (3.5-5.1); SODIUM 135 mmol/L (136-145); TCO2 25 mmol/L (25-35)
[2016-11-27] MEDS: COZAAR PO SCH (09:07)
[2016-11-27] MEDS: LOPRESSOR PO SCH (09:07)
[2016-11-27] MEDS: GRANIX SUBQ SCH (09:22)
--- NOTE | 2016-11-27 15:28 | PROGRESS NOTE ---
DATE: 11/27/2016 SUBJECTIVE: This patient states that she is feeling better. Her neutropenia has improved. Hematology department is on board. She has no complaints today. OBJECTIVE: Vital Signs: Temperature 97.5 degrees, pulse 66, respiratory rate 18, blood pressure 122/53, oxygen saturation 100% on room air. HEENT: Head normocephalic. No trauma. PERRLA. Neck: Supple. No JVD. No masses. Chest: Clear to auscultation. No wheezing. No rales. Abdomen: Soft, nontender, nondistended. No hepatosplenomegaly. Positive bowel sounds. Cardiovascular: RRR. No murmurs. No gallops. No rubs. Extremities: No edema. No clubbing. No cyanosis. Neurological: The patient is alert and oriented x3. No focal neurological deficits. LABORATORY DATA: WBC 10, hemoglobin 11.2, hematocrit 35.2, platelets 152,000. Sodium 135, potassium 4.2, chloride 98, bicarbonate 28, BUN 11, creatinine 0.8, glucose 90, calcium 8.3. ASSESSMENT AND PLAN: 1. Urinary tract infection. We will continue with intravenous levofloxacin. We will continue with intravenous fluids as well. She has a positive culture that showed Escherichia coli urinary tract infection. 2. Leukopenia with neutropenia. Hematology department is on board. This condition has resolved after treatment. Upon discharge, they will follow this patient in 2 weeks. 3. Anemia. We will monitor. 4. Hyponatremia, resolved. We have been looking for placement for this patient. This patient is ready to be discharged. She has no family members, nobody can take care of her. She is elderly and she is weak. Some friends and some of the family are looking for placement. Apparently, she is going to see [facility], but because of the holidays, they will have a bed available hopefully next Thursday. So, my plan is to continue with this patient's treatment and physical therapy. Once we have placement, she will be discharged.
[2016-11-27] MEDS: LEVAQUIN 750 MG in NS 150 ML IV SCH (15:31)
[2016-11-28 06:02] LABS: BASO% 0.1 % (0.0-0.8); EOS# 0.04 X1000 (0.0-0.7); EOS% 0.3 % (0.0-10.0); HEMATOCRIT 34.4 % (37.0-47.0); HEMOGLOBIN 10.9 g/dL (12.0-16.0); IMM GRAN# 1.34 X1000 (0.0-0.04); IMM GRAN% 9.2 % (0.0-0.5); LYMPH# 1.48 X1000 (1.2-3.4); LYMPH% 10.2 % (20.5-51.1); MANUAL DIFF NEEDED? YES; MCH 26.5 PG (27-31); MCHC 31.7 g/dL (33-37); MCV 83.5 FL (81-99); MONO# 0.65 X1000 (0.11-0.59); MONO% 4.5 % (1.7-9.3); MPV 11.3 FL (7.4-10.4); NEUT% 75.7 % (42.2-75.2); PLT 137 X1000 (130-400); RBC 4.12 XMIL (4.2-5.4)
[2016-11-28 06:12] LABS: AGAP 10; BUN 9 mg/dL (8-22); CALCIUM 8.2 mg/dL (8.8-10.2); CHLORIDE 102 mmol/L (98-107); COSMO 274; POTASSIUM 4.3 mmol/L (3.5-5.1); SODIUM 138 mmol/L (136-145); TCO2 26 mmol/L (25-35)
[2016-11-28] MEDS: PRILOSEC PO SCH (06:17)
[2016-11-28] MEDS: LOVENOX SUBQ SCH (06:17)
[2016-11-28] MEDS: HUMULIN R SUBQ SCH ×3 (06:18→21:37)
[2016-11-28 06:48] LABS: BANDS 10 % (0-1); LYMPHS 12 % (21-51); MONO 4 % (1-9)
[2016-11-28] MEDS: COZAAR PO SCH (08:54)
[2016-11-28] MEDS: LOPRESSOR PO SCH (08:54)
[2016-11-28] MEDS: GRANIX SUBQ SCH (08:54)
[2016-11-28 09:34] LABS: AGAP 13; BUN 9 mg/dL (8-22); CALCIUM 8.4 mg/dL (8.8-10.2); CHLORIDE 100 mmol/L (98-107); COSMO 270; MAGNESIUM 1.9 mg/dL (1.5-2.7); POTASSIUM 4.2 mmol/L (3.5-5.1); SODIUM 135 mmol/L (136-145); TCO2 22 mmol/L (25-35)
[2016-11-28] MEDS: LEVAQUIN 750 MG in NS 150 ML IV SCH (16:59)
--- NOTE | 2016-11-28 20:12 | PROGRESS NOTE ---
DATE: 11/28/2016 SUBJECTIVE: This patient states that she is feeling better. She has been walking. She is tolerating p.o. She has no complaint. OBJECTIVE: Vital Signs: Temperature 97.4, pulse 62, respiratory rate 18, blood pressure 124/50, O2 saturation 96 on room air. HEENT: Head normocephalic. No trauma. PERRLA. Neck: Supple. No JVD. No masses. Chest: Clear to auscultation. No wheezing. No rales. Abdomen: Soft, nontender, nondistended. No hepatosplenomegaly. Positive bowel sounds. Cardiovascular: RRR. No murmurs. No gallops. No rubs. Extremities: No edema. No clubbing. No cyanosis. Neurological: The patient is alert and oriented x3. No focal neurological deficits. LABORATORY: WBC 14.5, hemoglobin 10.9, hematocrit 34.4, platelet 137,000. Sodium 135, potassium 4.2, chloride 100, bicarbonate 22, BUN 9, creatinine 0.7, glucose 123, calcium 8.4. ASSESSMENT AND PLAN: 1. Urinary tract infection. We will continue with the intravenous levofloxacin. We will continue also the IV fluids. She has a positive culture that showed Escherichia coli urinary tract infection. 2. Leukopenia with neutropenia resolved. 3. Anemia. Will monitor. 4. Hyponatremia resolved. This patient will be discharged to [facility] but because of the holidays they will have a bed available hopefully next Thursday.
[2016-11-29] MEDS: HUMULIN R SUBQ SCH ×3 (06:33→16:36)
[2016-11-29 07:09] LABS: BASO% 0.2 % (0.0-0.8); EOS# 0.03 X1000 (0.0-0.7); EOS% 0.2 % (0.0-10.0); HEMATOCRIT 34.4 % (37.0-47.0); HEMOGLOBIN 10.9 g/dL (12.0-16.0); IMM GRAN# 0.16 X1000 (0.0-0.04); IMM GRAN% 0.8 % (0.0-0.5); LYMPH# 1.95 X1000 (1.2-3.4); MANUAL DIFF NEEDED? YES; MCH 26.5 PG (27-31); MCHC 31.7 g/dL (33-37); MCV 83.7 FL (81-99); MONO# 0.96 X1000 (0.11-0.59); MONO% 4.9 % (1.7-9.3); MPV 11.2 FL (7.4-10.4); NEUT% 83.9 % (42.2-75.2); PLT 152 X1000 (130-400); RBC 4.11 XMIL (4.2-5.4)
[2016-11-29 07:29] LABS: AGAP 9; BUN 9 mg/dL (8-22); CALCIUM 8.6 mg/dL (8.8-10.2); CHLORIDE 101 mmol/L (98-107); COSMO 270; POTASSIUM 4.8 mmol/L (3.5-5.1); SODIUM 136 mmol/L (136-145); TCO2 26 mmol/L (25-35)
[2016-11-29 07:48] LABS: BANDS 14 % (0-1); LYMPHS 10 % (21-51); MONO 2 % (1-9)
[2016-11-29] MEDS: LOPRESSOR PO SCH ×2 (07:54→08:14)
[2016-11-29] MEDS: COZAAR PO SCH ×2 (07:54→08:14)
[2016-11-29] MEDS: PRILOSEC PO SCH (07:54)
[2016-11-29] MEDS: ASPIRIN PO SCH ×2 (07:54→08:14)
[2016-11-29] MEDS: LOVENOX SUBQ SCH ×2 (07:54→08:14)
--- NOTE | 2016-11-29 15:35 | PROGRESS NOTE ---
DATE: 11/29/2016 SUBJECTIVE: This patient states that she is feeling good. She has been walking. She is tolerating p.o. She has no complaints. OBJECTIVE: Vital Signs: Temperature 97.6 degrees, pulse 72, respiratory rate 18, blood pressure 124/57, O2 saturation 97% on room air. HEENT: Head normocephalic. No trauma. PERRLA. Neck: Supple. No JVD. No masses. Chest: Clear to auscultation. No wheezing. No rales. Abdomen: Soft, nontender, nondistended. No hepatosplenomegaly. Positive bowel sounds. Cardiovascular: RRR. No murmurs. No gallops. No rubs. Extremities: No edema. No clubbing. No cyanosis. Neurological: The patient is alert and oriented x3. No focal neurological deficits. LABORATORY: WBC 19.4, hemoglobin 10.9, hematocrit 34.4, platelets 152,000, sodium 136, potassium 4.8, chloride 101, bicarbonate 26, BUN 9, creatinine 0.8, glucose 95, calcium 8.6, vitamin B12 193. ASSESSMENT AND PLAN: 1. Urinary tract infection. I will continue with the intravenous levofloxacin. Probably today will be the last dose. 2. Leukocytosis. This patient received a previous treatment for leukopenia for a couple days and after that, the leukopenia resolved. Now she has leukocytosis, but she does not have any fever or chills or worsening of her urinary infection condition. 3. Anemia macrocytic, likely related with B12 deficiency. Will replace the vitamin B12. This patient is ready to be discharged, we are waiting for placement, she will be discharged to [facility] but because of the holidays they will have a bed available hopefully next Thursday.
[2016-11-29] MEDS: LEVAQUIN 750 MG in NS 150 ML IV SCH (16:37)
[2016-11-30] MEDS: HUMULIN R SUBQ SCH ×5 (03:02→20:15)
[2016-11-30] MEDS: PRILOSEC PO SCH (06:05)
[2016-11-30 07:09] LABS: AGAP 10; BUN 8 mg/dL (8-22); CALCIUM 8.5 mg/dL (8.8-10.2); CHLORIDE 101 mmol/L (98-107); COSMO 274; POTASSIUM 4.8 mmol/L (3.5-5.1); SODIUM 138 mmol/L (136-145); TCO2 27 mmol/L (25-35)
[2016-11-30] MEDS: LOVENOX SUBQ SCH ×2 (07:38→11:53)
[2016-11-30] MEDS: LOPRESSOR PO SCH ×2 (07:38→11:53)
[2016-11-30] MEDS: ASPIRIN PO SCH ×2 (07:39→11:53)
[2016-11-30] MEDS: COZAAR PO SCH ×2 (07:39→11:53)
[2016-11-30 07:54] LABS: BASO% 0.2 % (0.0-0.8); EOS# 0.09 X1000 (0.0-0.7); EOS% 0.7 % (0.0-10.0); HEMATOCRIT 34.5 % (37.0-47.0); HEMOGLOBIN 10.9 g/dL (12.0-16.0); IMM GRAN# 0.04 X1000 (0.0-0.04); IMM GRAN% 0.3 % (0.0-0.5); LYMPH# 2.23 X1000 (1.2-3.4); MANUAL DIFF NEEDED? YES; MCH 26.4 PG (27-31); MCHC 31.6 g/dL (33-37); MCV 83.5 FL (81-99); MONO# 1.08 X1000 (0.11-0.59); MONO% 8.7 % (1.7-9.3); MPV 11.2 FL (7.4-10.4); NEUT% 72.1 % (42.2-75.2); PLT 180 X1000 (130-400); RBC 4.13 XMIL (4.2-5.4)
[2016-11-30 08:05] LABS: BANDS 6 % (0-1); LYMPHS 16 % (21-51); MONO 4 % (1-9)
--- NOTE | 2016-11-30 15:07 | PROGRESS NOTE ---
DATE: 11/30/2016 SUBJECTIVE: This patient states that she is feeling good. She has been walking. She is tolerating p.o. She has no complaints. OBJECTIVE: Vital Signs: Temperature 97.4 degrees, pulse 71, blood pressure 130/55, oxygen saturation 100% on room air. HEENT: Head normocephalic. No trauma. PERRLA. Neck: Supple. No JVD. No masses. Chest: Clear to auscultation. No wheezing. No rales. Abdomen: Soft, nontender, nondistended. No hepatosplenomegaly. Positive bowel sounds. Cardiovascular: RRR. No murmurs. No gallops. No rubs. Extremities: No edema. No clubbing. No cyanosis. Neurological: The patient is alert and oriented x3. No focal neurological deficits. LABORATORY: WBC 12.4, hemoglobin 10.9, hematocrit 34.5, platelets 180,000. Sodium 138, potassium 4.8, chloride 101, bicarbonate 27, BUN 8, creatinine 0.8. Glucose 99, calcium 8.5. ASSESSMENT AND PLAN: 1. Urinary tract infection. This patient has been on levofloxacin since the day of admission, has completed the treatment. I will stop the antibiotics today. She is not complaining of burning sensation with urination and pain. 2. Leukocytosis. Initially this patient came with leukopenia and after treatment recommended for Hematology Oncology the leukopenia resolved and WBC increased. We will monitor. 3. Microcytic anemia, likely secondary to B12 deficiency. Yesterday I started B12 treatment that she is going to get for 1 week intramuscular and then weekly and then every month. This patient is ready to be discharged. We are waiting for placement. She will be discharged to [facility] but because of the holiday, they will have a bed is available hopefully next Thursday.
[2016-11-30] MEDS: CYANOCOBALAMIN IM SCH (16:42)
[2016-12-01 06:19] LABS: MANUAL DIFF NEEDED? NO
[2016-12-01 06:40] LABS: BASO% 0.1 % (0.0-0.8); EOS# 0.17 X1000 (0.0-0.7); EOS% 2.5 % (0.0-10.0); HEMOGLOBIN 11.5 g/dL (12.0-16.0); IMM GRAN# 0.09 X1000 (0.0-0.04); IMM GRAN% 1.3 % (0.0-0.5); LYMPH# 1.65 X1000 (1.2-3.4); LYMPH% 24.3 % (20.5-51.1); MCH 26.6 PG (27-31); MCHC 31.9 g/dL (33-37); MCV 83.1 FL (81-99); MONO# 0.93 X1000 (0.11-0.59); MONO% 13.7 % (1.7-9.3); MPV 11.4 FL (7.4-10.4); NEUT% 58.1 % (42.2-75.2); PLT 192 X1000 (130-400); RBC 4.33 XMIL (4.2-5.4)
[2016-12-01] MEDS: PRILOSEC PO SCH (06:41)
[2016-12-01] MEDS: HUMULIN R SUBQ SCH ×4 (06:42→21:46)
[2016-12-01 07:11] LABS: AGAP 10; BUN 11 mg/dL (8-22); CALCIUM 8.7 mg/dL (8.8-10.2); CHLORIDE 101 mmol/L (98-107); COSMO 275; POTASSIUM 4.5 mmol/L (3.5-5.1); SODIUM 138 mmol/L (136-145); TCO2 27 mmol/L (25-35)
[2016-12-01] MEDS: LOVENOX SUBQ SCH (08:51)
[2016-12-01] MEDS: LOPRESSOR PO SCH (08:51)
[2016-12-01] MEDS: COZAAR PO SCH (08:51)
[2016-12-01] MEDS: CYANOCOBALAMIN IM SCH (08:51)
[2016-12-01] MEDS: ASPIRIN PO SCH (08:51)
--- NOTE | 2016-12-01 12:46 | PROGRESS NOTE ---
DATE: 12/01/2016 SUBJECTIVE: This patient states that she is feeling good. She has been walking. She has been tolerating p.o., no complaints. OBJECTIVE: Vital Signs: Temperature 97.5 degrees, pulse 98, respiratory rate 17, blood pressure 139/44, O2 saturation 100% on room air. HEENT: Head normocephalic. No trauma. PERRLA. Neck: Supple. No JVD. No masses. Chest: Clear to auscultation. No wheezing. No rales. Abdomen: Soft, nontender, nondistended. No hepatosplenomegaly. Positive bowel sounds. Cardiovascular: RRR. No murmurs. No gallops. No rubs. Extremities: No edema. No clubbing. No cyanosis. Neurological examination: The patient is alert and oriented x3. No focal neurological deficits. LABORATORY: WBC 6.8, hemoglobin 11.5, hematocrit 36, platelets 192. Sodium 138, potassium 4.5, chloride 101, bicarbonate 27, BUN 11, creatinine 0.7, glucose 100, calcium 8.7. ASSESSMENT AND PLAN: 1. Urinary tract infection. This patient has been on levofloxacin and she completed already the treatment and the antibiotics were stopped. She is not complaining of any pain or burning sensation with urination. 2. Leukocytosis resolved. The leukocytes are normal at this moment. 3. Leukopenia on admission, evaluated by the Hematology Department. They treat this patient, now the leukocytes are normal. 4. Macrocytic anemia likely secondary to B12 deficiency. We need to continue with B12 injection for 1 week until completing 7 days, then once per week and then once per month. We will monitor. This patient is ready to be discharged hopefully tomorrow. She will be discharged to [facility].
[2016-12-02] MEDS: HUMULIN R SUBQ SCH ×2 (06:08→10:34)
[2016-12-02] MEDS: PRILOSEC PO SCH (06:08)
[2016-12-02] MEDS: LOPRESSOR PO SCH ×2 (07:35→10:33)
[2016-12-02] MEDS: COZAAR PO SCH ×2 (07:35→10:33)
[2016-12-02] MEDS: LOVENOX SUBQ SCH ×2 (07:35→10:34)
[2016-12-02] MEDS: ASPIRIN PO SCH ×2 (07:35→10:33)
[2016-12-02] MEDS: CYANOCOBALAMIN IM SCH ×2 (07:35→10:33)
[2016-12-02 08:00] VITALS: BP 108/53
--- NOTE | 2016-12-02 13:38 | DISCHARGE SUMMARY ---
ADMISSION DATE: 11/23/2016 DISCHARGE DATE: 12/02/2016 DIAGNOSES LEADING TO HOSPITALIZATION: 1. Urinary tract infection. 2. Questionable dementia versus encephalopathy. 3. Anemia. 4. Leukopenia. 5. Hyponatremia. 6. Deep venous thrombosis prophylaxis and gastrointestinal prophylaxis. DISCHARGE DIAGNOSES: 1. Urinary tract infection, resolved. 2. B 12 deficiency. 3. Macrocytic anemia. HOSPITAL COURSE: A 76-year-old, healthy female in no acute distress admitted on 11/23/2016. She was brought to the emergency department because she was slightly confused, smelling of urine. She was evaluated in the emergency department and they found out that this patient had a urinary tract infection. The patient states that she did not have any falls this morning, currently she is living alone. She was admitted. She received IV fluids for dehydration, and also we started on broad-spectrum antibiotics for the urinary tract infection. CT scan of the head was done and was negative. She was admitted to the medical floor with telemetry, this patient was improving on a daily basis, she received a complete course of antibiotics during this hospitalization. She is not confused. Because of her microcytic anemia, we did workup this patient with B 12 and folate. Her B 12 was low and we started giving her B 12 injections. At the beginning, this patient was presented also with leukopenia. We consulted the hematology department and they treated this patient. The last lab work was completely normal. Leukocytes were normal. Today 12/02/2016, we are going to discharge this patient with strict followup by her primary care physician. She will be discharged to a [facility], [facility]. At the moment of discharge, this patient was in stable medical condition tolerating p.o. and ambulating with assistance. LABORATORY: Not done today. DISCHARGE PHYSICAL EXAMINATION: Vital Signs: Temperature 97.7 degrees, pulse 90, respiratory rate 19, blood pressure 108/53, oxygen saturation 98 on room air. HEENT: Head normocephalic. No trauma. PERRLA. Neck: Supple. No JVD. No masses. Chest: Clear to auscultation. No wheezing. No rales. Abdomen: Soft, nontender, nondistended. No hepatosplenomegaly. Cardiovascular: RRR. No murmurs. No gallops. No rubs. Extremities: No edema. No clubbing. Neurological examination: The patient is alert and oriented x3. No focal neurological deficits. DISCHARGE MEDICATIONS: 1. Aspirin 81 mg p.o. daily. 2. Vitamin B 12 injections; she already received 3 doses here in the hospital; she needs 4 more to complete 1 week, then once a week for 1 month and then once a month. 3. Losartan 50 mg p.o. daily. 4. Lopressor 50 mg p.o. daily. 5. Omeprazole 40 mg p.o. daily. Time discharging this patient: 35 minutes JARAD
--- NOTE | 2016-12-09 19:31 | DISCHARGE SUMMARY ---
ADMISSION DATE: 11/23/2016 DISCHARGE DATE: 12/02/2016 DISCHARGE SUMMARY ADDENDUM: DIAGNOSIS: Urinary tract infection/localized infection only.
== END 2016-12-02 14:26 | disposition home health service (06) | DRG 689 ==
LOC: EDBD → ED 11:43 → 4N 11:44 → DIRADM 11-27 13:26 → 4N 11-27 13:29 → 3N 11-29 02:38
PROVIDERS: ATTEND Internal Medicine
DX: N39.0 Urinary tract infection, site not specified (principal); G93.40 Encephalopathy, unspecified; R64 Cachexia; D70.9 Neutropenia, unspecified; E87.1 Hypo-osmolality and hyponatremia; E86.0 Dehydration; D51.9 Vitamin B12 deficiency anemia, unspecified; Z68.1 Body mass index [BMI] 19.9 or less, adult; B96.1 Klebsiella pneumoniae [K. pneumoniae] as the cause of diseases classified elsewhere; E11.9 Type 2 diabetes mellitus without complications; I10 Essential (primary) hypertension; Z79.899 Other long term (current) drug therapy; Z79.82 Long term (current) use of aspirin; Z83.3 Family history of diabetes mellitus; Z82.3 Family history of stroke
CPT/HCPCS: 70450; 71010; 80048; 80053; 81001; 82550; 82607; 82746; 82948; 83036; 83516; 83605; 83735; 84100; 84134; 84484; 85025; 85651; 86038; 87077; 87088; 87186; 93005; 93010; 94760; 94761; 94799; 96365; 96366; 96375; G0480; J0696; J1447; J1650; J3420; J7030; 97001-GP; 97110-GP; 97116-GP; 97530-GP